=== PATIENT | male | born 1970 | race Two or more races ===

== ENCOUNTER 2019-04-21 07:28 | Emergency (ER) | payer MEDICAID ==
[~2019-04-21] VITALS: Ht 167.6 cm; Wt 79.0 kg
[2019-04-21] MEDS ORDERED: DIABETIC MEDICATION PO (07:41)
[2019-04-21 07:51] LABS: GLUCOSE,POINT OF CARE 259 MG/DL (70-110)
[2019-04-21] MEDS: KETOROLAC TROMETHAMINE 60 MG/2 ML VIAL IM ONE (08:44)
[2019-04-21 09:38] VITALS: BP 128/80
== END 2019-04-21 09:40 | disposition home or self-care (01) ==
LOC: EMS 07:30
DX: S20.212A Contusion of left front wall of thorax, initial encounter (principal); E11.65 Type 2 diabetes mellitus with hyperglycemia; W22.8XXA Striking against or struck by other objects, initial encounter; Y93.89 Activity, other specified; Y92.89 Other specified places as the place of occurrence of the external cause; Y99.8 Other external cause status
CPT/HCPCS: 71101; 82962; 96372; 99283; J1885

== ENCOUNTER 2022-02-06 16:44 | Emergency (ER) | payer MEDICAID ==
[~2022-02-06] VITALS: Ht 167.6 cm; Wt 78.0 kg
[~2022-02-06 16:44] MED LIST: DIABETIC MEDICATION PO
[2022-02-06 17:04] VITALS: BP 128/86
[2022-02-06] MEDS ORDERED: PERTUSS(ACELL),DIPH,TET VAC/PF 0.5 ML SYRINGE IM. ONE (17:30)
[2022-02-06] MEDS ORDERED: IBUPROFEN 600 MG TABLET PO ONE (17:30)
== END 2022-02-06 17:53 | disposition home or self-care (01) ==
LOC: EMS 16:50
DX: S91.202A Unspecified open wound of left great toe with damage to nail, initial encounter (principal); E11.9 Type 2 diabetes mellitus without complications; W45.8XXA Other foreign body or object entering through skin, initial encounter; Y93.89 Activity, other specified; Y92.89 Other specified places as the place of occurrence of the external cause; Y99.8 Other external cause status
CPT/HCPCS: 82962; 90471; 90715; 99283